=== PATIENT | female | born 1955 | race Caucasian/White ===

== ENCOUNTER 2020-07-13 10:08 | Day surgery (SDC) | payer SELFPAY ==
[2020-07-07 12:09] VITALS: BMI 29.2
[2020-07-13] MEDS ORDERED: PROPOFOL 20 ML ONE ×2 (11:04→11:45)
[2020-07-13] MEDS ORDERED: EPINEPHrine/PF 1 MG/1 ML (1:1,000) AMPULE ONE (11:09)
[2020-07-13] MEDS ORDERED: LIDOCAINE HCL 1%, 10 MG/ML (20ML VIAL) ONE (11:10)
[2020-07-13] MEDS ORDERED: ceFAZolin 2 GRAM PREMIX BAG IVPB ONE (11:18)
[2020-07-13] MEDS ORDERED: DEXAMETHASONE SOD PHOSPHATE 4 MG/1 ML VIAL ONE (11:53)
[2020-07-13] MEDS ORDERED: ONDANSETRON 4 MG/2 ML VIAL ONE (11:53)
[2020-07-13] MEDS ORDERED: ceFAZolin SODIUM 1 GM VIAL ONE (11:55)
[2020-07-13] MEDS ORDERED: LIDOCAINE HCL 1%, 10 MG/ML (50 mL VIAL) INF ONE (12:33)
[2020-07-13] MEDS ORDERED: BUPIVACAINE HCL/PF 0.5% (5MG/ML) 10 ML VIAL IJ ONE (14:08)
[2020-07-13] MEDS ORDERED: HYDROmorphone HCL/PF 1 MG/ML VIAL ONE (14:51)
[2020-07-13] MEDS ORDERED: ONDANSETRON 4 MG/2 ML VIAL IVPUSH PRN (15:44)
[2020-07-13] MEDS ORDERED: traMADol HCL 50 MG TABLET PO ONE (17:08)
[2020-07-13] MEDS ORDERED: traMADol HCL 50 MG TABLET ONE (17:55)
[2020-07-13] MEDS ORDERED: ACETAMINOPHEN 325 MG TABLET (FP) ONE (17:56)
[2020-07-13] MEDS: ACETAMINOPHEN 325 MG TABLET (FP) PO PRN (18:01)
[2020-07-13] MEDS ORDERED: diphenhydrAMINE HCL 25 MG CAPSULE (FP) PO PRN (19:33)
[2020-07-13] MEDS ORDERED: HYDROmorphone HCL 2 MG TABLET ONE (19:35)
[2020-07-13] MEDS: HYDROmorphone HCL 2 MG TABLET PO PRN (19:35)
[2020-07-13] MEDS ORDERED: LIOTHYRONINE SODIUM 5 MCG TABLET PO SCH (22:00)
[2020-07-13] MEDS ORDERED: DULoxetine HCL 30 MG CAPSULE.DR PO SCH (22:00)
[2020-07-13] MEDS ORDERED: TOPIRAMATE 25 MG TABLET PO SCH (22:00)
[2020-07-14] MEDS: ACETAMINOPHEN 325 MG TABLET (FP) PO PRN (00:20)
[2020-07-14] MEDS: HYDROmorphone HCL 2 MG TABLET PO PRN ×2 (01:26→08:15)
[2020-07-14] MEDS ORDERED: LOCK ITEM NR ONE (02:33)
[2020-07-14 14:31] VITALS: BP 124/79; PULSE 79; TEMP 99.2
[2020-07-14] MEDS ORDERED: metFORMIN HCL 500 MG TABLET (FP) PO SCH (16:30)
== END 2020-07-14 14:30 | disposition home or self-care (01) ==
LOC: FASU 10:08 → FM/S 20:46 → FASU 07-14 14:30
PROVIDERS: ATTEND Surgery Plastic and Reconstructive Surgery
PROC: 0J0L3ZZ Alteration of Right Upper Leg Subcutaneous Tissue and Fascia, Percutaneous Approach (ICD-10-PCS; 2020-07-13)
PROC: 0J083ZZ Alteration of Abdomen Subcutaneous Tissue and Fascia, Percutaneous Approach (ICD-10-PCS; 2020-07-13)
PROC: 0J0M3ZZ Alteration of Left Upper Leg Subcutaneous Tissue and Fascia, Percutaneous Approach (ICD-10-PCS; principal; 2020-07-13 11:00)
DX: E88.1 Lipodystrophy, not elsewhere classified (principal)
CPT/HCPCS: 82962; 88300-TC; 94760